=== PATIENT | female | born 1945 | race Caucasian/White ===

== ENCOUNTER 2016-12-03 14:11 | Outpatient (CLI) | payer MEDICARE, BC ==
[2015-04-16 13:04] VITALS: O2SAT 98
== END 2016-12-03 14:12 | disposition home or self-care (01) | DRG 554 ==
LOC: CONVCARE 14:11
PROVIDERS: ATTEND Orthopaedic Surgery
DX: M19.042 Primary osteoarthritis, left hand (principal); M19.041 Primary osteoarthritis, right hand
CPT/HCPCS: 73140